=== PATIENT | female | born 1940 | race Caucasian/White ===

== ENCOUNTER 2021-08-07 23:39 | Inpatient (IN) ==
[2021-08-07] MEDS ORDERED: 0.9 % Sodium Chloride 1,000 ML ONE ×2 (23:44→23:45)
[2021-08-07] MEDS ORDERED: Heparin 1,000 UNITS/500 mL 500 ML ONE (23:44)
[2021-08-07] MEDS ORDERED: ISOVUE-370 200 ML INFUS..BTL ONE (23:45)
[2021-08-07] MEDS ORDERED: *HR* Heparin 10,000 UNIT/10 ML VIAL ONE (23:45)
[2021-08-07] MEDS ORDERED: Nitroglycerin 1,000 MCG/5 ML VIAL IV ONE (23:45)
[2021-08-07] MEDS ORDERED: Isovue-370 500 ML BOTTLE IVP ONE (23:52)
[2021-08-08] MEDS ORDERED: *HR* Heparin 5,000 UNIT/ML VIAL IVP ONE (00:39)
[2021-08-08] MEDS ORDERED: *HR* FentaNYL (PF) 100 MCG/2 ML VIAL ONE (00:41)
[2021-08-08] MEDS ORDERED: *HR* Midazolam HCl 2 MG/2 ML VIAL ONE (00:41)
[2021-08-08] MEDS ORDERED: Tirofiban 12.5 MG/250ML 12.5 MG/250 ML BAG ONE (01:15)
[2021-08-08] MEDS ORDERED: *HR* Ticagrelor 90 MG TABLET ONE (01:20)
[2021-08-08] MEDS ORDERED: ISOVUE-370 200 ML INFUS..BTL ONE (01:21)
[2021-08-08] MEDS ORDERED: Protamine Sulfate 50 MG/5 ML VIAL IVP ONE (01:39)
[2021-08-08] MEDS ORDERED: Perflutren Lipid Microsphere 1.3 ML in 0.9 % Sodium Chloride 8.7 ML IVP PRN (01:43)
[2021-08-08] MEDS ORDERED: Tirofiban 12.5 MG/250ML 12.5 MG/250 ML BAG IVC SCH (01:45)
[2021-08-08 06:20] LABS: Basophils # 0.1 K/mcL (0.0-0.2); Basophils % 0.6 %; Eosinophils % 0.1 %; Hematocrit 37.1 % (35.3-44.9); Immature Granulocytes % 0.4 % (0-4); Lymphocytes # 3.2 K/mcL (0.6-4.6); Mean Corpuscular Hemoglobin 33.1 pg (28.0-33.3); Mean Corpuscular Volume 94.4 fL (83.0-100.0); Mean Platelet Volume 11.2 fL (9.4-12.4); Monocytes # 0.9 K/mcL (0.0-1.3); Monocytes % 6.6 %; Neutrophils # 9.6 K/mcL (1.6-8.9); Platelet Count 249 K/mcL (140-400); Red Blood Count 3.93 M/mcL (3.82-4.97); Red Cell Distribution Width 13.6 % (11.5-14.5); Segmented Neutrophils % 69.3 %; White Blood Count 13.8 K/mcL (4.3-11.1)
[2021-08-08 06:39] LABS: BUN/Creatinine Ratio 12 (6-26); Blood Urea Nitrogen 8 mg/dL (8-23); Calcium 9.3 mg/dL (8.6-10.3); Carbon Dioxide 23 mEq/L (23-29); Chloride 109 mEq/L (98-107); Glucose 121 mg/dL (70-105); Osmolality,Calculated 290 (280-300); Potassium 3.5 mEq/L (3.5-5.1); Sodium 140 mEq/L (136-145); eGFR For African Americans > 60 (> 60); eGFR For Non-African Americans > 60 (> 60)
[2021-08-08] MEDS ORDERED: Nitroglycerin 0.4 MG TAB.SUBL SL PRN (08:38)
[2021-08-08] MEDS: *HR* Ticagrelor 90 MG TABLET PO SCH ×2 (08:45→19:41)
[2021-08-08] MEDS: Metoprolol XL (24 HR) Succ 25 MG TAB.ER.24H PO SCH (08:45)
[2021-08-08] MEDS: Aspirin Enteric Coated 81 MG Tablet PO SCH (08:45)
[2021-08-09] MEDS: Metoprolol XL (24 HR) Succ 25 MG TAB.ER.24H PO SCH (07:33)
[2021-08-09] MEDS: Aspirin Enteric Coated 81 MG Tablet PO SCH (07:33)
[2021-08-09] MEDS: *HR* Ticagrelor 90 MG TABLET PO SCH ×2 (07:33→20:03)
[2021-08-10 06:06] LABS: Hematocrit 38.3 % (35.3-44.9); Hemoglobin 13.3 g/dL (11.5-15.4); Mean Corpuscular HGB Conc 34.7 g/dL (31.6-35.5); Mean Corpuscular Hemoglobin 32.9 pg (28.0-33.3); Mean Corpuscular Volume 94.8 fL (83.0-100.0); Mean Platelet Volume 11.1 fL (9.4-12.4); Platelet Count 214 K/mcL (140-400); Red Blood Count 4.04 M/mcL (3.82-4.97); Red Cell Distribution Width 13.8 % (11.5-14.5); White Blood Count 13.4 K/mcL (4.3-11.1)
[2021-08-10 06:36] LABS: Troponin I 6.75 ng/mL (< 0.04)
[2021-08-10 07:03] VITALS: BP 150/77; TEMP 98; O2SAT 98
[2021-08-10 07:31] LABS: BUN/Creatinine Ratio 17 (6-26); Blood Urea Nitrogen 13 mg/dL (8-23); Calcium 9.1 mg/dL (8.6-10.3); Carbon Dioxide 20 mEq/L (23-29); Chloride 114 mEq/L (98-107); Glucose 103 mg/dL (70-105); Osmolality,Calculated 278 (280-300); Potassium 3.7 mEq/L (3.5-5.1); Sodium 134 mEq/L (136-145); eGFR For African Americans > 60 (> 60); eGFR For Non-African Americans > 60 (> 60)
[2021-08-10] MEDS: Aspirin Enteric Coated 81 MG Tablet PO SCH (09:00)
[2021-08-10] MEDS: *HR* Ticagrelor 90 MG TABLET PO SCH (09:00)
[2021-08-10] MEDS: Metoprolol XL (24 HR) Succ 25 MG TAB.ER.24H PO SCH (09:00)
[2021-08-10 09:31] VITALS: PULSE 74
== END 2021-08-10 09:34 | disposition home or self-care (01) | DRG 247 ==
LOC: EMEROOARM 23:39 → 2NNU 08-08 00:51
PROVIDERS: ADMIT Internal Medicine Interventional Cardiology; ATTEND Internal Medicine Interventional Cardiology

== ENCOUNTER 2021-08-22 17:05 | Observation (INO) ==
[2021-08-22] MEDS ORDERED: Naloxone 0.4 MG/ML INJ IVP PRN (21:16)
[2021-08-22] MEDS ORDERED: *HR* Heparin 5,000 UNIT/ML VIAL IVP PRN ×2 (22:55)
[2021-08-22] MEDS ORDERED: Heparin 25,000UNIT/250ML 1/2NS 25,000 UNIT/250 ML IV.SOLN IVC SCH (23:00)
[2021-08-22 23:01] LABS: INR 1.1; Prothrombin Time 12.5 Seconds (9.4-12.1)
[2021-08-22 23:05] LABS: Basophils # 0.1 K/mcL (0.0-0.2); Basophils % 0.5 %; Eosinophils # 0.2 K/mcL (0.0-0.6); Eosinophils % 1.7 %; Hematocrit 38.9 % (35.3-44.9); Hemoglobin 13.3 g/dL (11.5-15.4); Immature Granulocytes % 0.3 % (0-4); Lymphocytes # 3.5 K/mcL (0.6-4.6); Mean Corpuscular HGB Conc 34.2 g/dL (31.6-35.5); Mean Corpuscular Hemoglobin 32.8 pg (28.0-33.3); Mean Corpuscular Volume 95.8 fL (83.0-100.0); Mean Platelet Volume 10.9 fL (9.4-12.4); Monocytes # 0.7 K/mcL (0.0-1.3); Monocytes % 6.6 %; Neutrophils # 6.4 K/mcL (1.6-8.9); Platelet Count 294 K/mcL (140-400); Red Blood Count 4.06 M/mcL (3.82-4.97); Red Cell Distribution Width 14.1 % (11.5-14.5); Segmented Neutrophils % 58.9 %; White Blood Count 10.9 K/mcL (4.3-11.1)
[2021-08-22 23:13] LABS: Alanine Aminotransferase 7 Units/L (7-52); Albumin 3.7 g/dL (3.5-5.7); Albumin/Globulin Ratio 1.3 (1.1-2.2); Alkaline Phosphatase 69 Units/L (34-104); Aspartate Amino Transferase 17 Units/L (13-39); BUN/Creatinine Ratio 16 (6-26); Bilirubin,Total 0.7 mg/dL (0.3-1.0); Blood Urea Nitrogen 12 mg/dL (8-23); Calcium 9.3 mg/dL (8.6-10.3); Carbon Dioxide 22 mEq/L (23-29); Chloride 106 mEq/L (98-107); Chol/HDL Ratio 1.9 (0-4.9); Cholesterol 108 mg/dL (< 200); Globulin 2.9 g/dL (2.4-3.5); Glucose 95 mg/dL (70-105); HDL Cholesterol 57 mg/dL (40-59); LDL Cholesterol,Calculated 43 mg/dL (< 100); Osmolality,Calculated 282 (280-300); Sodium 136 mEq/L (136-145); Total Protein 6.6 g/dL (6.4-8.9); Triglycerides 41 mg/dL (< 150); eGFR For African Americans > 60 (> 60); eGFR For Non-African Americans > 60 (> 60)
[2021-08-22 23:15] LABS: Troponin I 0.04 ng/mL (< 0.04)
[2021-08-22 23:24] LABS: Activated Partial Thrombo Time 147.7 Seconds (26.0-36.0)
[2021-08-23] MEDS: Ringers Solution, Lactated 1,000 ML IVC SCH ×2 (01:04→08:36)
[2021-08-23] MEDS: Metoprolol XL (24 HR) Succ 25 MG TAB.ER.24H PO SCH (07:48)
[2021-08-23] MEDS: Fluticasone Propionate Nasal 50 MCG/SPRAY BOTTLE NS SCH (08:28)
[2021-08-23] MEDS ORDERED: Aspirin Enteric Coated 81 MG Tablet PO SCH (09:00)
[2021-08-23] MEDS ORDERED: *HR* Ticagrelor 90 MG TABLET PO SCH (09:00)
[2021-08-23 09:30] LABS: Bilirubin,Urine Negative (Negative); Blood,Urine Negative (Negative); Clarity,Urine Clear (Clear); Color,Urine Colorless (Yellow); Glucose,Urine (UA) Normal (Normal); Ketones,Urine 20 mg/dL (Negative); Leukocyte Esterase,Urine Negative (Negative); Nitrite,Urine Negative (Negative); PH,Urine 6.5 pH Units (5.0-8.0); Protein,Urine Negative (Neg-Trace); Specific Gravity,Urine 1.009 (1.010-1.025); Urobilinogen,Urine Normal (Normal)
[2021-08-23] MEDS ORDERED: Ringers Solution, Lactated 1,000 ML IVC SCH (14:30)
[2021-08-23] MEDS ORDERED: *HR* Dextrose 50 % in Water (Syg) 50 ML SYRINGE IVP ONE (17:52)
[2021-08-23] MEDS: D5% in 0.9% NACL 1,000 ML IVC SCH (18:10)
[2021-08-23] MEDS: Ondansetron 4 MG/2 ML VIAL IVP PRN (19:31)
[2021-08-23] MEDS: *HR* Ticagrelor 90 MG TABLET PO SCH (21:17)
[2021-08-24] MEDS: D5% in 0.9% NACL 1,000 ML IVC SCH ×2 (02:12→11:42)
[2021-08-24 03:00] LABS: Basophils # 0.1 K/mcL (0.0-0.2); Basophils % 0.7 %; Eosinophils # 0.4 K/mcL (0.0-0.6); Eosinophils % 3.5 %; Hematocrit 36.6 % (35.3-44.9); Hemoglobin 12.5 g/dL (11.5-15.4); Immature Granulocytes % 0.3 % (0-4); Lymphocytes # 2.8 K/mcL (0.6-4.6); Lymphocytes % 24.5 %; Mean Corpuscular HGB Conc 34.2 g/dL (31.6-35.5); Mean Corpuscular Hemoglobin 32.8 pg (28.0-33.3); Mean Corpuscular Volume 96.1 fL (83.0-100.0); Mean Platelet Volume 10.7 fL (9.4-12.4); Monocytes # 1.2 K/mcL (0.0-1.3); Monocytes % 10.6 %; Platelet Count 271 K/mcL (140-400); Red Blood Count 3.81 M/mcL (3.82-4.97); Red Cell Distribution Width 13.9 % (11.5-14.5); Segmented Neutrophils % 60.4 %; White Blood Count 11.5 K/mcL (4.3-11.1)
[2021-08-24 03:22] LABS: BUN/Creatinine Ratio 13 (6-26); Blood Urea Nitrogen 9 mg/dL (8-23); Calcium 8.9 mg/dL (8.6-10.3); Carbon Dioxide 21 mEq/L (23-29); Chloride 108 mEq/L (98-107); Glucose 106 mg/dL (70-105); Magnesium 1.7 mg/dL (1.6-2.6); Osmolality,Calculated 283 (280-300); Potassium 3.7 mEq/L (3.5-5.1); Sodium 137 mEq/L (136-145); eGFR For African Americans > 60 (> 60); eGFR For Non-African Americans > 60 (> 60)
[2021-08-24 03:32] LABS: Thyroid Stimulating Hormone 1.972 mcIU/mL (0.340-5.600)
[2021-08-24] MEDS ORDERED: Nitroglycerin 0.4 MG TAB.SUBL SL PRN (07:57)
[2021-08-24] MEDS: *HR* Ticagrelor 90 MG TABLET PO SCH ×2 (08:29→20:45)
[2021-08-24] MEDS: Aspirin Enteric Coated 81 MG Tablet PO SCH (08:30)
[2021-08-24] MEDS: Fluticasone Propionate Nasal 50 MCG/SPRAY BOTTLE NS SCH (08:30)
[2021-08-24] MEDS: Loratadine 10 MG TABLET PO SCH (08:30)
[2021-08-24] MEDS: Metoprolol XL (24 HR) Succ 25 MG TAB.ER.24H PO SCH (08:30)
[2021-08-24] MEDS ORDERED: Acetaminophen 325 MG TABLET PO PRN (15:47)
[2021-08-25] MEDS: Ondansetron 4 MG/2 ML VIAL IVP PRN (01:32)
[2021-08-25 06:59] VITALS: BP 134/69; PULSE 76; TEMP 98.1; O2SAT 96
[2021-08-25] MEDS: Aspirin Enteric Coated 81 MG Tablet PO SCH (07:32)
[2021-08-25] MEDS: Loratadine 10 MG TABLET PO SCH (07:32)
[2021-08-25] MEDS: Metoprolol XL (24 HR) Succ 25 MG TAB.ER.24H PO SCH (07:32)
[2021-08-25] MEDS: Fluticasone Propionate Nasal 50 MCG/SPRAY BOTTLE NS SCH (07:32)
[2021-08-25] MEDS: *HR* Ticagrelor 90 MG TABLET PO SCH (07:32)
[2021-08-25 07:52] LABS: Basophils # 0.1 K/mcL (0.0-0.2); Basophils % 0.6 %; Eosinophils # 0.5 K/mcL (0.0-0.6); Eosinophils % 4.9 %; Hemoglobin 13.4 g/dL (11.5-15.4); Immature Granulocytes % 0.3 % (0-4); Lymphocytes # 2.3 K/mcL (0.6-4.6); Lymphocytes % 22.4 %; Mean Corpuscular HGB Conc 34.4 g/dL (31.6-35.5); Mean Corpuscular Hemoglobin 33.3 pg (28.0-33.3); Mean Corpuscular Volume 96.8 fL (83.0-100.0); Mean Platelet Volume 11.1 fL (9.4-12.4); Monocytes # 0.8 K/mcL (0.0-1.3); Monocytes % 7.7 %; Neutrophils # 6.6 K/mcL (1.6-8.9); Platelet Count 284 K/mcL (140-400); Red Blood Count 4.03 M/mcL (3.82-4.97); Red Cell Distribution Width 13.9 % (11.5-14.5); Segmented Neutrophils % 64.1 %; White Blood Count 10.3 K/mcL (4.3-11.1)
[2021-08-25 07:58] LABS: BUN/Creatinine Ratio 10 (6-26); Blood Urea Nitrogen 6 mg/dL (8-23); Calcium 9.3 mg/dL (8.6-10.3); Carbon Dioxide 23 mEq/L (23-29); Chloride 109 mEq/L (98-107); Glucose 107 mg/dL (70-105); Magnesium 1.8 mg/dL (1.6-2.6); Osmolality,Calculated 288 (280-300); Potassium 3.8 mEq/L (3.5-5.1); Sodium 140 mEq/L (136-145); eGFR For African Americans > 60 (> 60); eGFR For Non-African Americans > 60 (> 60)
== END 2021-08-25 10:14 | disposition home or self-care (01) ==
LOC: 3ANU → SUATTDRO 20:41
PROVIDERS: ADMIT Internal Medicine; ATTEND Pharmacist